=== PATIENT | female | born 1960 ===

== ENCOUNTER 2022-11-23 05:55 | Day surgery (SDC) | payer OTHER ==
[~2022-11-23] VITALS: Ht 177.8 cm; Wt 117.9 kg
[~2022-11-23 05:55] MED LIST: CHILDREN'S ASPI81 MG PO; HORIZANT300 MG PO; HYDROCHLOROTHIA25 MG PO; METFORMIN HCL500 M3 PO; MONTELUKAST SOD10 MG PO; TOPROL XL50 M1 PO; ZESTRIL40 M1 PO
== END 2022-11-23 17:20 | disposition home or self-care (01) ==
LOC: CIR.AMB 05:55
PROVIDERS: ATTEND Specialist
DX: N95.0 Postmenopausal bleeding (principal); Z20.822 Contact with and (suspected) exposure to COVID-19